=== PATIENT | female | born 1980 | race Caucasian/White ===

== ENCOUNTER 2021-09-11 01:17 | Emergency (ER) | payer MEDICAID ==
[~2021-09-11] VITALS: Ht 165.1 cm; Wt 75.4 kg
[~2021-09-11 01:17] MED LIST: METO50TA7 PO; NICO-687 TD
[2021-09-11 02:07] VITALS: BP 120/93
[2021-09-11] MEDS ORDERED: CLIN-97 PO (02:43)
[2021-09-11] MEDS ORDERED: clindamycin 150mg capsule PO ONE (02:45)
== END 2021-09-11 02:58 | disposition home or self-care (01) ==
LOC: ER 01:18
DX: L03.211 Cellulitis of face (principal); R55 Syncope and collapse; F41.9 Anxiety disorder, unspecified; Z98.890 Other specified postprocedural states; Z72.89 Other problems related to lifestyle; Z88.2 Allergy status to sulfonamides; Z88.5 Allergy status to narcotic agent; Z79.899 Other long term (current) drug therapy
CPT/HCPCS: 99283

== ENCOUNTER → 2022-02-27 | Emergency (ER) | payer MEDICAID ==
[~2022-02-27] VITALS: Ht 165.1 cm; Wt 76.4 kg
[~2022-02-27] MED LIST changes: +CLIN-97 PO
[2022-02-27 21:04] VITALS: BP 143/107
== END | disposition home or self-care (01) ==
LOC: ER 21:01
DX: Z02.89 Encounter for other administrative examinations (principal); M79.642 Pain in left hand; G89.29 Other chronic pain; F41.9 Anxiety disorder, unspecified; Z98.890 Other specified postprocedural states; Z72.89 Other problems related to lifestyle; Z88.2 Allergy status to sulfonamides; Z88.5 Allergy status to narcotic agent; Z79.2 Long term (current) use of antibiotics; Z79.899 Other long term (current) drug therapy
CPT/HCPCS: 99281

== ENCOUNTER 2024-11-28 13:13 | Emergency (ER) | payer MEDICAID, OTHER ==
[~2024-11-28] VITALS: Ht 165.1 cm; Wt 88.0 kg
[2024-11-28 13:59] VITALS: BP 117/80; PULSE 91; RESP 18; TEMP 98.7; O2SAT 97
== END 2024-11-28 15:08 | disposition left against medical advice (07) ==
LOC: ER 13:14
DX: R10.9 Unspecified abdominal pain (principal); Z88.5 Allergy status to narcotic agent; Z88.2 Allergy status to sulfonamides; Z53.21 Procedure and treatment not carried out due to patient leaving prior to being seen by health care provider